=== PATIENT | female | born 1950 | race Caucasian/White ===

== ENCOUNTER 2020-11-20 13:30 | Inpatient (IN) | payer OTHER ==
[~2020-11-20] VITALS: Ht 160 cm; Wt 65.8 kg
[2020-11-20 13:31] VITALS: BP 122/55
[2020-11-20] MEDS ORDERED: LISINOPRIL5 MG PO (13:41)
[2020-11-20 14:21] LABS: ABSOLUTE NEUTROPHILS 9.3 thou/uL (1.4-8.2); BASOPHILS 0.9 % (0.0-2.0); HEMATOCRIT 41.3 % (37.0-47.0); HEMOGLOBIN 13.5 gm/dL (12.0-15.0); LYMPHOCYTES 15.4 % (24.0-44.0); MCH 32.1 pg (26.0-34.0); MCHC 32.7 g/dL (28.0-37.0); MONOCYTES 6.7 % (1.0-8.0); PLATELET COUNT 213 thou/uL (150-400); RBC 4.21 mil/uL (4.20-5.00); RDW 14.2 % (10.5-14.5); WBC 12.5 thou/uL (4.0-11.0)
[2020-11-20 14:28] LABS: ANION GAP 4 mmol/L (7-16); BUN 9 mg/dL (7-18); CALCIUM 8.6 mg/dL (8.5-10.1); CHLORIDE 101 mmol/L (98-107); CO2 31 mmol/L (21-32); GLUCOSE 121 mg/dL (74-106); SODIUM 136 mmol/L (136-145)
[2020-11-20 14:45] LABS: ALBUMIN 3.2 g/dL (3.4-5.0); SGOT 24 U/L (15-37); SGPT 21 U/L (30-65); TOTAL BILIRUBIN 0.4 mg/dL (0.2-1.0); TOTAL PROTEIN 6.3 g/dL (6.4-8.2); TROPONIN-I <0.06 ng/mL (<0.06)
--- NOTE | 2020-11-20 15:28 | EKG ---
[address] [place] [address] ELECTROCARDIOGRAM REPORT Name: ARGENIS MCARTHUR [facility] #: [facility] [id number] Admission: 11/20/20 Attend Phys: Discharge: Date of : 50 Report #: [id number] [facility] ED Test Date: 2020-11-20 Test Time: 14:03:28 Pat Name: ARGENIS MCARTHUR Department: Room: Gender: F Arm Maker: Angel NUNEZ : 1950 Requested By: Turner Suarez Order Number: [id number] MD: Austin Valdovinos Measurements Intervals [place] Rate: 72 P: 65 TX: 140 QRS: 37 QRSD: 102 T: 73 QT: 377 QTc: 413 Interpretive Statements Sinus rhythm Nonspecific T abnrm, anterolateral leads No previous ECG available for comparison Electronically Signed On 11-20-2020 15:28:31 [employer] by Austin Valdovinos [email or web address] <ELECTRONICALLY SIGNED> By: Austin Valdovinos MD, [facility] 11/20/20 1528 1403 1403 Austin Valdovinos MD, FACC /EPI
[2020-11-20 17:02] LABS: URINE BILIRUBIN NEGATIVE (Negative); URINE BLOOD TRACE (Negative); URINE CLARITY CLEAR; URINE COLOR YELLOW; URINE GLUCOSE-RANDOM* NEGATIVE (Negative); URINE KETONES NEGATIVE (Negative); URINE NITRITE-REFLEX NEGATIVE (Negative); URINE PROTEIN (DIPSTICK) NEGATIVE (Negative); URINE UROBILINOGEN 0.2 E.U./dl (0.2-1.0)
[2020-11-20 18:00] LABS: URINE LEUKOCYTES-REFLEX 1+ (Negative)
[2020-11-20 18:05] LABS: CASTS None Seen /LPF (None Seen); SQUAMOUS 0-3 Few /LPF (0-3); URINE RBC None Seen /HPF (0-2); URINE WBC-REFLEX 0-5 Rare /HPF (0-5)
[2020-11-20 18:06] LABS: BACTERIA-REFLEX None Seen /HPF (None Seen); CRYSTALS None Seen /LPF (None Seen)
[2020-11-20 18:21] VITALS: BP 95/68
[2020-11-20 18:41] VITALS: BP 95/68
--- NOTE | 2020-11-20 19:05 | NUR ---
Recieved pt to 204/ 0 x4 but anxious. Settled in bed and report given to oncoming shift.
[2020-11-20 19:45] VITALS: BP 126/65
--- NOTE | 2020-11-21 00:02 | NUR ---
RESUMED CARE AT AROUND 191, PT IS AWAKE, ALERT AND ORIENTED, MAKES NEEDS KNOWN, C/O PAIN IN THE LOWER BACK, STATES DOESNT WANT PAIN MEDS AT THE MOMENT; ADMISSION ASSESSMENT COMPLETED, VSS, BS STABLE, DENIES CHEST PAIN OR SOB, MEDS GIVEN PER NOV, ADMISSION HX COMPLETED, NO NEEDS AT THIS TIME; PT SLEEPING, WILL CONTINUE TO MONITOR AND FOLLOW POC
[2020-11-21 00:30] VITALS: BP 130/44
[2020-11-21 04:45] VITALS: BP 113/42
[2020-11-21 07:31] VITALS: BP 115/44
--- NOTE | 2020-11-21 07:46 | NUR ---
ASSUMED CARE FOR PATIENT AT THIS TIME. PT IN BED, ASSESSMENT PERFORMED, MRI SCREENING COMPLETED. PT EDUCATED ON FALL RISK PRECAUTIONS. VSS WILL CONTINUE TO MONITOR.
--- NOTE | 2020-11-21 11:21 | NUR ---
PT IN MRI THEN WILL TRANSFER OVER TO CT SCAN. MONITOR PLACED ON STANDBY.
[2020-11-21 11:53] VITALS: BP 134/53
--- NOTE | 2020-11-21 12:49 | NUR ---
met with patient who admits with vertigo/fall at home. Patient reports she lives with disabled spouse and son. Lives in independent home. All needs on one level. 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 She has melany lift for him as needed. Son is not employed and able to assist with care. spouse has [facility]. Patient reports she was dizzy but bent down to drain spouses urine bag and fell to the floor. Plan to dc home once stable. PCP Dr Grace Knowles.
[2020-11-21 15:15] VITALS: BP 124/42
[2020-11-21 20:20] VITALS: BP 107/53
[2020-11-22 00:35] VITALS: BP 120/55
[2020-11-22 01:06] LABS: GLYCOHEMOGLOBIN (HGB A1C) 5.4 % (4.8-5.6)
[2020-11-22 04:30] VITALS: BP 110/59
[2020-11-22 04:49] LABS: HEMATOCRIT 38.6 % (37.0-47.0); HEMOGLOBIN 12.9 gm/dL (12.0-15.0); MCH 32.8 pg (26.0-34.0); MCHC 33.5 g/dL (28.0-37.0); RBC 3.94 mil/uL (4.20-5.00); RDW 14.2 % (10.5-14.5); WBC 7.4 thou/uL (4.0-11.0)
[2020-11-22 04:57] LABS: ALBUMIN 2.8 g/dL (3.4-5.0); CALCIUM 8.2 mg/dL (8.5-10.1); CREATININE 0.9 mg/dL (0.6-1.0); MAGNESIUM 2.1 mg/dL (1.8-2.4); PHOSPHORUS 3.3 mg/dL (2.5-4.9); POTASSIUM 3.9 mmol/L (3.5-5.1)
--- NOTE | 2020-11-22 07:19 | NUR ---
ASSUMED PT CARE AT THIS TIME. PT WAS SLEEPING UPON ENTERING THE ROOM. PT WOKE UP, PT DENIES PAIN AT THIS TIME. ASSESSMENT PERFORMED.
[2020-11-22 07:26] VITALS: BP 114/50
--- NOTE | 2020-11-22 07:27 | NUR ---
assumed care at 1900, pt is awake, alert and oriented, tyl given as scheuled for pain with good control, denies dizziness, no distress noted, passed on report to day nurse
--- NOTE | 2020-11-22 11:28 | NUR ---
PT eval pending arrival of a TLSO brace for the pt. Possible dc home today if cleared by therapy. Will f/u should the pt need HH referral.
[2020-11-22 15:08] VITALS: BP 134/58
[2020-11-22 15:48] VITALS: BP 134/58
[2020-11-22 17:13] VITALS: BP 134/58
== END 2020-11-22 18:39 | disposition home or self-care (01) | DRG 551 ==
LOC: ER 13:30 → EROBS 17:17 → 2N 17:17
PROVIDERS: Emergency Medicine; Hospitalist; Surgery; ADMIT Surgery; ATTEND Surgery
DX: S32.040A Wedge compression fracture of fourth lumbar vertebra, initial encounter for closed fracture (principal); E43 Unspecified severe protein-calorie malnutrition; I10 Essential (primary) hypertension; F12.90 Cannabis use, unspecified, uncomplicated; F17.210 Nicotine dependence, cigarettes, uncomplicated; Z68.25 Body mass index [BMI] 25.0-25.9, adult; W18.39XA Other fall on same level, initial encounter; Y93.89 Activity, other specified; Y92.89 Other specified places as the place of occurrence of the external cause; Y99.8 Other external cause status; H81.10 Benign paroxysmal vertigo, unspecified ear
CPT/HCPCS: 10081